=== PATIENT | female | born 1945 | race Caucasian/White ===

== ENCOUNTER 2019-09-11 18:03 | Emergency (ER) | payer OTHER ==
[~2019-09-11] VITALS: Ht 172.7 cm; Wt 90.3 kg
--- NOTE | 2019-09-11 18:08 | NUR ---
[id number], WOKE UP COUGHING AND CONFUSED 1 HOUR AGO. 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
--- NOTE | 2019-09-11 18:19 | NUR ---
DR VICTOR AT BEDSIDE
[2019-09-11 18:30] LABS: BASOPHILS % (AUTO) 0.3 % (0.0-2.0); HEMATOCRIT 40 % (33-45); HEMOGLOBIN 13.1 g/dL (11.5-14.8); LYMPHOCYTES # (AUTO) 2.5 /CMM (0.8-4.8); LYMPHOCYTES % (AUTO) 21.6 % (20.0-44.0); MEAN CORPUSCULAR HGB CONC 33 g/dl (31.0-36.0); MEAN CORPUSCULAR VOLUME 93 fL (82-100); MONOCYTES # (AUTO) 0.5 /CMM (0.1-1.30); MONOCYTES % (AUTO) 4.5 % (2.0-12.0); NEUTROPHILS # (AUTO) 8.2 /CMM (1.8-8.9); NEUTROPHILS % (AUTO) 70.6 % (43.0-81.0); PLATELET COUNT (AUTO) 218 /CMM (150-450); WHITE BLOOD COUNT (AUTO) 11.6 K/uL (4.3-11.0)
[2019-09-11 18:39] LABS: CALCIUM, SERUM 10.1 mg/dL (8.5-10.1); CARBON DIOXIDE 28 mmol/L (21-32); CHLORIDE 101 mmol/L (98-107); CREATININE 1.4 mg/dL (0.6-1.3); GLUCOSE 301 mg/dL (74-106); POTASSIUM 3.7 mmol/L (3.5-5.1); SODIUM SERUM 138 mmol/L (136-145); UREA NITROGEN, BLOOD 31 mg/dL (7-18)
[2019-09-11 18:45] LABS: ALANINE AMINOTRANSFERASE 35 U/L (12-78); ALBUMIN 3.7 g/dL (3.4-5.0); ALKALINE PHOSPHATASE 112 U/L (46-116); ASPARTATE AMINOTRANSFERASE 26 U/L (15-37); BILIRUBIN,DIRECT 0.1 mg/dL (0.0-0.2); BILIRUBIN,TOTAL 0.5 mg/dL (0.2-1.0); TOTAL PROTEIN, SERUM 7.9 g/dL (6.4-8.2)
--- NOTE | 2019-09-11 18:53 | NUR ---
PT DAUGHTER LEFT CONTACT #[phone]
[2019-09-11] MEDS ORDERED: IV NS 0.9% 1,000 ML BAG IV ONE (19:00)
--- NOTE | 2019-09-11 19:10 | NUR ---
REPORT GIVEN TO LUIS KRISHNAMURTHY FOR JAYLEN
--- NOTE | 2019-09-11 19:31 | NUR ---
REPORT RECEIVED FROM YESSY COPE FOR JAYLEN
--- NOTE | 2019-09-11 19:36 | NUR ---
REPORT RECEIVED FROM YESSY COPE FOR JAYLEN
[2019-09-11 19:50] LABS: APPEARANCE,URINE Clear (CLEAR); BILIRUBIN,URINE Negative (NEGATIVE); BLOOD, URINE Negative Ery/uL (NEGATIVE); COLOR,URINE Yellow (YELLOW); KETONES,URINE Negative (NEGATIVE); LEUKOCYTE ESTERASE ,URINE Trace (NEGATIVE); NITRITE, URINE Negative (NEGATIVE); PROTEIN,URINE 100 mg/dl (NEGATIVE); UGLUCOSE >=1000 mg/dL (NEGATIVE); UROBILINOGEN,URINE 0.2 EU/dL (0.2)
[2019-09-11 20:12] LABS: BACTERIA,URINE None seen /HPF (None Seen); RBC,URINE 0-2 /HPF (0-2); SQUAMOUS EPITHELIAL CELL,UR Few /HPF (None Seen); WBC,URINE 0-2 /HPF (0-3)
--- NOTE | 2019-09-11 20:27 | NUR ---
Patient discharged to home in stable condition. Written and verbal after care instructions given. Patient verbalizes understanding of instruction.IV removed. Catheter intact and site benign. Pressure and 4x4 applied to site. No bleeding noted.PT ambulatory with a steady gait
[2019-09-11 20:28] VITALS: BP 140/87
== END 2019-09-11 20:28 | disposition home or self-care (01) ==
LOC: ER 18:03
DX: J98.01 Acute bronchospasm (principal); R41.0 Disorientation, unspecified; E86.0 Dehydration; I10 Essential (primary) hypertension; Z88.0 Allergy status to penicillin
CPT/HCPCS: 36415; 70450; 71045; 80048; 80076; 81001; 84484; 85025; 93005; 96360; 99285; J7030; 81000-TC

== ENCOUNTER 2021-01-11 19:51 | Inpatient (IN) | payer MEDICARE, OTHER ==
[~2021-01-11] VITALS: Ht 172.7 cm; Wt 85.3 kg
--- NOTE | 2021-01-11 19:51 | NUR ---
PT AAOX4. BIBEMS C/O GEN WEAKNESS, DARK STOOL. COVID (+) 01/06/21. PLACED IN BED 8 ON CARE TRANSPORT NURSE AND PULSE OX. ER MD AT BEDSIDE FOR EVAL. AWAITING ORDERS.
--- NOTE | 2021-01-11 19:53 | NUR ---
LINE ESTABLISHED RAC 20G, BLOOD COLLECTED, SENT TO LAB.
--- NOTE | 2021-01-11 19:58 | NUR ---
STATED SHE WAS HAVING BLOODY BM X1 WEEK
--- NOTE | 2021-01-11 20:03 | NUR ---
RADIOLOGY AT BEDSIDE FOR XRAY.
[2021-01-11 20:33] LABS: BASOPHILS % (AUTO) 0.5 % (0.0-2.0); EOSINOPHILS % (AUTO) 0.3 % (0.0-6.0); HEMATOCRIT 37 % (33-45); HEMOGLOBIN 12.2 g/dL (11.5-14.8); LYMPHOCYTES # (AUTO) 1.2 K/uL (0.8-4.8); LYMPHOCYTES % (AUTO) 17.4 % (20.0-44.0); MEAN CORPUSCULAR HGB CONC 33 g/dl (31.0-36.0); MEAN CORPUSCULAR VOLUME 91 fL (82-100); MONOCYTES # (AUTO) 0.5 K/uL (0.1-1.30); MONOCYTES % (AUTO) 7.4 % (2.0-12.0); NEUTROPHILS # (AUTO) 5.2 K/uL (1.8-8.9); NEUTROPHILS % (AUTO) 74.4 % (43.0-81.0); PLATELET COUNT (AUTO) 164 K/uL (150-450); RED BLOOD CELL COUNT(AUTO) 4.04 MIL/uL (4.0-5.2)
[2021-01-11 20:46] LABS: CALCIUM, SERUM 8.9 mg/dL (8.5-10.1); CARBON DIOXIDE 24 mmol/L (21-32); CHLORIDE 97 mmol/L (98-107); CREATININE 1.7 mg/dL (0.6-1.3); GLUCOSE 229 mg/dL (74-106); POTASSIUM 3.8 mmol/L (3.5-5.1); SODIUM SERUM 132 mmol/L (136-145); UREA NITROGEN, BLOOD 25 mg/dL (7-18)
--- NOTE | 2021-01-11 20:55 | NUR ---
PT RESTING COMFORTABLY. CALL LIGHT WITHIN REACH
[2021-01-11 21:00] LABS: ALANINE AMINOTRANSFERASE 46 U/L (12-78); ALBUMIN 3.4 g/dL (3.4-5.0); ALKALINE PHOSPHATASE 97 U/L (46-116); ASPARTATE AMINOTRANSFERASE 54 U/L (15-37); BILIRUBIN,DIRECT 0.2 mg/dL (0.0-0.2); BILIRUBIN,TOTAL 0.5 mg/dL (0.2-1.0); TOTAL PROTEIN, SERUM 7.5 g/dL (6.4-8.2)
--- NOTE | 2021-01-11 21:50 | NUR ---
GALE HERNANDEZ TALKING TO [employer] DEATH CLAIM EXAMINER REGARDING PT.
[2021-01-11] MEDS ORDERED: LEVOFLOXACIN 500 MG /D5W 100ML 500 MG/100 ML PIGGYBACK IV ONE (22:00)
--- NOTE | 2021-01-11 22:22 | NUR ---
ARTEM [facility], [phone]
--- NOTE | 2021-01-11 22:24 | NUR ---
SPOKE TO ARTEM FROM [facility], UPDATED HER THAT PCR WAS DONE. STATED SHE WILL CALL BACK.
--- NOTE | 2021-01-12 00:15 | NUR ---
RESTING COMFORTABLY. VSS.
--- NOTE | 2021-01-12 01:50 | NUR ---
PT AMBULATED TO THE BEDSIDE COMMODE. BACK TO BED. ON MONITOR AND PULSE OX. VSS.
--- NOTE | 2021-01-12 03:45 | NUR ---
PT RESTING COMFORTABLY. VSS. PROVIDED WITH MORE BLANKETS.
[2021-01-12] MEDS: ACETAMINOPHEN 325 MG TABLET PO PRN (04:44)
[2021-01-12] MEDS: CEFTRIAXONE 1 G in IV D5W 50 ML IV SCH (05:00)
[2021-01-12] MEDS ORDERED: ONDANSETRON HCL/PF 4 MG/2 ML VIAL IVP PRN (05:00)
[2021-01-12] MEDS ORDERED: ENOXAPARIN SODIUM 40 MG/0.4 ML DISP.SYRIN SQ SCH (05:00)
[2021-01-12] MEDS ORDERED: Z GUARD REMEDY 2 OZ OINT TP PRN (05:00)
[2021-01-12] MEDS ORDERED: CEFTRIAXONE 1GM BAG (ER ONLY) 50 ML IV ONE (05:10)
[2021-01-12] MEDS ORDERED: ENOXAPARIN SODIUM 40 MG/0.4 ML DISP.SYRIN SQ ONE (05:10)
[2021-01-12 05:19] LABS: ALANINE AMINOTRANSFERASE 45 U/L (12-78); ALBUMIN 3.2 g/dL (3.4-5.0); ALKALINE PHOSPHATASE 89 U/L (46-116); ASPARTATE AMINOTRANSFERASE 52 U/L (15-37); BILIRUBIN,TOTAL 0.5 mg/dL (0.2-1.0); CALCIUM, SERUM 9.1 mg/dL (8.5-10.1); CARBON DIOXIDE 25 mmol/L (21-32); CHLORIDE 99 mmol/L (98-107); CREATININE 1.5 mg/dL (0.6-1.3); GLUCOSE 197 mg/dL (74-106); MAGNESIUM 1.9 mg/dL (1.8-2.4); PHOSPHORUS 2.7 mg/dL (2.5-4.9); POTASSIUM 4.4 mmol/L (3.5-5.1); SODIUM SERUM 134 mmol/L (136-145); TOTAL PROTEIN, SERUM 7.4 g/dL (6.4-8.2); UREA NITROGEN, BLOOD 23 mg/dL (7-18)
[2021-01-12] MEDS ORDERED: AZITHROMYCIN 500 MG VIAL ONE (05:27)
--- NOTE | 2021-01-12 05:31 | NUR ---
PT REQUESTED FOR ME TO STOP THE ANTIBIOTICS. STATED IT WAS BURNING. I DID CHECK THE IV SITE, IV SITE WORKS. ANTIBIOTICS STOPPED. (ZITHROMAX)
[2021-01-12] MEDS: AZITHROMYCIN 500 MG in IV D5W 250 ML IV SCH (05:45)
--- NOTE | 2021-01-12 07:58 | NUR ---
75 years old female alert, oriented x3 presents to gen weakness, vital stable no acute distress awaiting for admit tele bed breakfast tray given tolerated well.
[2021-01-12] MEDS ORDERED: PANTOPRAZOLE 40 MG VIAL ONE (08:02)
[2021-01-12] MEDS ORDERED: DEXAMETHASONE SOD PHOSPHATE 10 MG/ML VIAL ONE (08:02)
[2021-01-12] MEDS: PANTOPRAZOLE 40 MG TABLET.DR PO SCH (08:04)
[2021-01-12] MEDS ORDERED: TRIA1TAB5 PO (08:29)
[2021-01-12] MEDS ORDERED: CLOP75TA15 PO (08:29)
[2021-01-12] MEDS ORDERED: ATOR40TA PO (08:29)
[2021-01-12] MEDS ORDERED: GLIP10TA11 PO (08:29)
[2021-01-12] MEDS ORDERED: METF-440 PO ×2 (08:29)
[2021-01-12] MEDS ORDERED: PIOG15TA8 PO (08:29)
[2021-01-12] MEDS ORDERED: LOSA50TA39 PO (08:29)
[2021-01-12] MEDS ORDERED: SITA50TA PO (08:29)
[2021-01-12] MEDS ORDERED: DEXAMETHASONE SOD PHOSPHATE 10 MG/ML VIAL IV SCH (09:00)
[2021-01-12] MEDS ORDERED: ONDANSETRON HCL/PF 4 MG/2 ML VIAL ONE (10:58)
--- NOTE | 2021-01-12 12:22 | NUR ---
patient reassess denies pain, vital stable, nausea improved.
--- NOTE | 2021-01-12 12:53 | NUR ---
ROOM 116-1
--- NOTE | 2021-01-12 13:34 | NUR ---
BED CORRECTION BED 105
--- NOTE | 2021-01-12 13:41 | NUR ---
patient stable for transfer to unit room 116-1 report given to nurse Eduardo all questions answered.
--- NOTE | 2021-01-12 14:00 | NUR ---
RN NOTE PATIENT RECEIVED FROM ER, PATIENT ON ROOM 15 RECEIVED REPORT FROM DONNELL KRISHNAMURTHY, WILL CONTINUE PLAN OF CARE.
[2021-01-12 16:00] VITALS: BP 134/78
[2021-01-12 16:44] LABS: BASOPHILS % (AUTO) 0.2 % (0.0-2.0); HEMATOCRIT 37 % (33-45); HEMOGLOBIN 12.2 g/dL (11.5-14.8); LYMPHOCYTES # (AUTO) 0.4 K/uL (0.8-4.8); LYMPHOCYTES % (AUTO) 11.4 % (20.0-44.0); MEAN CORPUSCULAR HGB CONC 33 g/dl (31.0-36.0); MEAN CORPUSCULAR VOLUME 91 fL (82-100); MONOCYTES # (AUTO) 0.1 K/uL (0.1-1.30); MONOCYTES % (AUTO) 2.3 % (2.0-12.0); NEUTROPHILS # (AUTO) 2.9 K/uL (1.8-8.9); NEUTROPHILS % (AUTO) 86.1 % (43.0-81.0); PLATELET COUNT (AUTO) 177 K/uL (150-450); RED BLOOD CELL COUNT(AUTO) 4.06 MIL/uL (4.0-5.2); WHITE BLOOD COUNT (AUTO) 3.4 K/uL (4.3-11.0)
[2021-01-12] MEDS: glipiZIDE 10 MG TABLET PO SCH (17:46)
--- NOTE | 2021-01-12 18:49 | NUR ---
RN NOTE PATIENT AWAKE, ALERT AND ORIENTED X4 ABLE TO VERBALIZE NEEDS, ON ROOM AIR BREATHING EVEN AND UNLABORED O2 SAT OF 98%, ON IV ATB FOR PNA NO ASE NOTED, IV SITE PATENT FLUSHING WELL, REFUSED LAB RE-DRAW, SAFETY MEASURE OBSERVED, BED WHEELS LOCK, CALL LIGHT WITHIN REACH, WILL ENDORSE TO NOC SHIFT.
[2021-01-12] MEDS: IV NS 0.9% 1,000 ML IV PRN (20:41)
[2021-01-12 22:00] VITALS: BP 115/69
--- NOTE | 2021-01-12 23:10 | NUR ---
RN NOTES, PATIENT NOTED WITH HR LOWEST 40 AT THIS TIME, DENIES ANY CHEST PAIN OR DISCOMFORT, INFORMED DR BUCHANAN GENERAL MANAGER FOOD AND HE REPLIED WITH ORDER TO CONT MONITOR FOR NOW, NOTED AND CARRIED OUT.
[2021-01-12 23:11] LABS: BILIRUBIN,URINE NEGATIVE (NEGATIVE); COLOR,URINE YELLOW (YELLOW); LEUKOCYTE ESTERASE ,URINE NEGATIVE (NEGATIVE); NITRITE, URINE NEGATIVE (NEGATIVE); PROTEIN,URINE 30 mg/dl (NEGATIVE); UGLUCOSE >=1000 mg/dL (NEGATIVE); UROBILINOGEN,URINE 0.2 EU/dL (0.2)
[2021-01-12 23:26] LABS: BACTERIA,URINE None seen /HPF (None Seen); MUCUS,URINE Few /LPF (None Seen); SQUAMOUS EPITHELIAL CELL,UR Few /HPF (None Seen); WBC,URINE 0-2 /HPF (0-3)
[2021-01-13] VITALS: BP 118/68
--- NOTE | 2021-01-13 01:40 | NUR ---
RN NOTES, PATIENT NOTED CONSISTENTLY WITH HR 38-40, INFORMED DR BUCHANAN MANAGER STUDY AND REPLIED WITH ORDER FOR ATROPINE 0.5 MG IVP STAT X ONE, ODER NOTED AND CARRIED OUT, WILL ADMINISTER ORDERED.
[2021-01-13] MEDS ORDERED: ATROPINE SULFATE 1 MG/10 ML DISP.SYRIN ONE (01:51)
--- NOTE | 2021-01-13 01:57 | NUR ---
RN NOTES, ATROPINE ADMINISTERED AT THIS TIME, PATIENT TOLERATED WELL, HR 39 AT THIS TIME IT INCREASED TO MID 40S WILL CONTINUE TO MONITOR CLOSELY.
[2021-01-13] MEDS ORDERED: ATROPINE SULFATE INJ 0.4 MG/ML VIAL IV ONE (02:00)
[2021-01-13 04:00] VITALS: BP_SYST 134; BP_SYST 144; BP_DIAS 63; BP_DIAS 67
[2021-01-13] MEDS: AZITHROMYCIN 500 MG in IV D5W 250 ML IV SCH (04:49)
[2021-01-13 05:00] LABS: OCCULT BLOOD STOOL NEGATIVE (NEGATIVE)
[2021-01-13] MEDS: CEFTRIAXONE 1 G in IV D5W 50 ML IV SCH (05:00)
[2021-01-13 06:41] LABS: BASOPHILS % (AUTO) 0.1 % (0.0-2.0); EOSINOPHILS % (AUTO) 0.1 % (0.0-6.0); HEMATOCRIT 34 % (33-45); HEMOGLOBIN 11.4 g/dL (11.5-14.8); LYMPHOCYTES % (AUTO) 20.7 % (20.0-44.0); MEAN CORPUSCULAR HGB CONC 33 g/dl (31.0-36.0); MEAN CORPUSCULAR VOLUME 91 fL (82-100); MONOCYTES # (AUTO) 0.5 K/uL (0.1-1.30); MONOCYTES % (AUTO) 10.9 % (2.0-12.0); NEUTROPHILS # (AUTO) 3.4 K/uL (1.8-8.9); NEUTROPHILS % (AUTO) 68.2 % (43.0-81.0); PLATELET COUNT (AUTO) 181 K/uL (150-450); RED BLOOD CELL COUNT(AUTO) 3.78 MIL/uL (4.0-5.2)
[2021-01-13 07:20] LABS: CALCIUM, SERUM 8.9 mg/dL (8.5-10.1); CARBON DIOXIDE 22 mmol/L (21-32); CHLORIDE 97 mmol/L (98-107); CREATININE 1.6 mg/dL (0.6-1.3); MAGNESIUM 2.1 mg/dL (1.8-2.4); POTASSIUM 5.1 mmol/L (3.5-5.1); SODIUM SERUM 129 mmol/L (136-145); UREA NITROGEN, BLOOD 30 mg/dL (7-18)
[2021-01-13 07:22] LABS: CHOLESTEROL 106 mg/dL (<200); HDL CHOLESTEROL 52 mg/dL (40-60); LDL 38 mg/dL (0-99); TRIGLYCERIDES 79 mg/dL (30-150)
[2021-01-13 07:48] LABS: GLUCOSE 438 mg/dL (74-106)
[2021-01-13] MEDS: PANTOPRAZOLE 40 MG TABLET.DR PO SCH (07:49)
[2021-01-13 08:00] VITALS: BP 111/99
[2021-01-13] MEDS: glipiZIDE 10 MG TABLET PO SCH ×2 (08:35→17:32)
[2021-01-13] MEDS: ATORVASTATIN 40 MG TABLET PO SCH (08:36)
[2021-01-13] MEDS: LINAGLIPTIN 5 MG TABLET PO SCH (08:36)
[2021-01-13] MEDS ORDERED: ENOXAPARIN SODIUM 40 MG/0.4 ML DISP.SYRIN SQ SCH (09:00)
[2021-01-13] MEDS ORDERED: DEXTROSE 50%-WATER 50 ML DISP.SYRIN IV PRN (09:00)
[2021-01-13] MEDS: LOSARTAN POTASSIUM 50 MG TABLET PO SCH (09:00)
[2021-01-13] MEDS: PIOGLITAZONE HCL 15 MG TABLET PO SCH (09:28)
[2021-01-13] MEDS: BLOOD SUGAR DIAGNOSTIC 1 EACH STRIP IN SCH ×4 (09:48→22:32)
[2021-01-13] MEDS: INSULIN REGULAR, HUMAN 100 UNIT/ML 3 ML VIAL SQ PRN ×5 (09:49→22:43)
--- NOTE | 2021-01-13 09:52 | NUR ---
RN NOTES, BLOOD SUGAR 292MG/DL PATIENT REFUSED INSULIN COVERAGE, REFUSING INSULLIN, SHE STATED SHE DOESN'T WANT INSULIN.,
[2021-01-13 12:00] VITALS: BP 111/54
--- NOTE | 2021-01-13 12:50 | NUR ---
RN NOTES, BLOOD SUGAR 273MG/DL PATIENT REFUSED INSULIN COVERAGE.
[2021-01-13] MEDS: CLOPIDOGREL BISULFATE 75 MG TABLET PO SCH (13:45)
[2021-01-13] MEDS: DEXAMETHASONE SOD PHOSPHATE 10 MG/ML VIAL IV SCH (13:45)
[2021-01-13 16:00] VITALS: BP 144/63
--- NOTE | 2021-01-13 17:11 | NUR ---
RN NOTES, PATIENT IN STABLE CONDITION NO SOB/ACUTE DISTRESS AT 2LPM VIA NC, WILL ENDORSE TO DIEGO KRISHNAMURTHY FOR CONTINUATION OF CARE.
--- NOTE | 2021-01-13 17:36 | NUR ---
RN NOTE PATIENT ALERT AND ORIENTED X 4, REFUSED INSULIN PER SLIDING SCALE, BS OF 404, EXPLAINED RISK AND BENEFITS TO PATIENT, KOLE PERES NOTIFIED.
--- NOTE | 2021-01-13 19:03 | NUR ---
RN NOTE PATIENT AWAKE, ALERT AND RESPONSIVE X4, ADMINISTERED 10 UNIT INSULIN ORDERED MD AWARE THAT BLOOD SUGAR LEVEL IS 404, PATIENT REFUSED AT FIRST BUT CHANGED HER MIND AND WANTS INSULIN, ON O2 @ 2LPM O2 SAT OF 95% ON TELE MONITOR SR OF 62, NO PAIN COMPLAINS, WILL CONTINUE TO MONITOR, BED WHEELS LOCK, SAFETY MEASURE OBSERVED CALL LIGHT WITHIN REACH, WILL ENDORSE TO NOC SHIFT.
--- NOTE | 2021-01-13 19:51 | NUR ---
RN NOTE PATIENT ALERT AND ORIENTED X4. ON O2 2L VIA NASAL CANNULA, O2 SAT 95%. NO SIGNS OF SHORTNESS OF BREATH. DENIES ANY PAIN AT THIS TIME. WITH RIGHT AC # 20, NO SIGNS OF INFILTRATION. SAFETY MEASURES MAINTAINED. BED LOCKED AND IN LOWEST POSITION. CALL LIGHT WITHIN REACH. ALL NEEDS ANTICIPATED.
[2021-01-13 20:00] VITALS: BP 133/55
--- NOTE | 2021-01-13 23:00 | NUR ---
PATIENT NOTED WITH BLOOD SUGAR 416, DR. BUCHANAN NOTIFIED WITH NEW ORDERS FOR LANTUS 10 UNIT SQ QHS NOTED AND CARRIED OUT.
[2021-01-13] MEDS ORDERED: INSULIN GLARGINE, 100 UNIT/ML CARTRIDGE SQ ONE (23:38)
[2021-01-13] MEDS: INSULIN GLARGINE, 100 UNIT/ML CARTRIDGE SQ SCH (23:44)
[2021-01-14] VITALS: BP 144/82
--- NOTE | 2021-01-14 01:59 | NUR ---
PATIENT NOTED WITH HEART RATE 40 AT THIS TIME AND COMPLAINED OF LIGHT HEADEDNESS. INFORMED DR BUCHANAN FIRE CHIEF DEPUTY WITH ORDER TO CONT MONITOR FOR NOW. NOTED.
[2021-01-14 04:00] VITALS: BP 160/65
[2021-01-14] MEDS: CEFTRIAXONE 1 G in IV D5W 50 ML IV SCH (04:32)
[2021-01-14] MEDS: AZITHROMYCIN 500 MG in IV D5W 250 ML IV SCH (05:02)
[2021-01-14] MEDS: IV NS 0.9% 1,000 ML IV PRN (05:36)
--- NOTE | 2021-01-14 07:28 | NUR ---
RN NOTE PATIENT ALERT AND ORIENTED X4. ALL NEEDS ATTENDED PROMPTLY. DENIES ANY PAIN AT THIS TIME. SAFETY MEASURES MAINTAINED. BED LOCKED AND IN LOWEST POSITION. CALL LIGHT WITHIN REACH. ENDORSED TO AM SHIFT.
[2021-01-14] MEDS: BLOOD SUGAR DIAGNOSTIC 1 EACH STRIP IN SCH ×4 (07:39→23:23)
--- NOTE | 2021-01-14 07:41 | NUR ---
RN OPENING NOTES RECEIVED PATIENT IN BED, ALERT AND ORIENTED X4. ON O2 2L VIA NASAL CANNULA, O2 SAT 95%. NO SIGNS OF SHORTNESS OF BREATH. DENIES ANY PAIN AT THIS TIME, IN NO ACUTE DISTRESS NOTED. NO IV ACCESS AT THIS TIME, FOR MIDLINE INSERTION ORDERED. SAFETY MEASURES IN PLACE; BED IN LOCKED AND IN LOWEST POSITION. CALL LIGHT WITHIN REACH. WILL CONTINUE TO MONITOR ACCORDINGLY.
[2021-01-14] MEDS: PIOGLITAZONE HCL 15 MG TABLET PO SCH (08:19)
[2021-01-14] MEDS: LOSARTAN POTASSIUM 50 MG TABLET PO SCH (08:19)
[2021-01-14] MEDS: LINAGLIPTIN 5 MG TABLET PO SCH (08:19)
[2021-01-14] MEDS: PANTOPRAZOLE 40 MG TABLET.DR PO SCH ×2 (08:19→08:21)
[2021-01-14] MEDS: glipiZIDE 10 MG TABLET PO SCH ×2 (08:19→16:52)
[2021-01-14] MEDS: ATORVASTATIN 40 MG TABLET PO SCH (08:19)
[2021-01-14] MEDS: CLOPIDOGREL BISULFATE 75 MG TABLET PO SCH (08:19)
[2021-01-14] MEDS: DEXAMETHASONE SOD PHOSPHATE 10 MG/ML VIAL IV SCH (09:00)
--- NOTE | 2021-01-14 09:00 | NUR ---
RN NOTES NO IV ACCESS, DEXAMETHASONE NOT YET GIVEN.
[2021-01-14 09:41] VITALS: BP 142/60
[2021-01-14] MEDS: INSULIN REGULAR, HUMAN 100 UNIT/ML 3 ML VIAL SQ PRN ×3 (11:32→23:21)
[2021-01-14 13:37] VITALS: BP 135/65
[2021-01-14 17:47] VITALS: BP 144/64
[2021-01-14 17:52] LABS: POTASSIUM 3.5 mmol/L (3.5-5.1); SODIUM SERUM 137 mmol/L (136-145)
[2021-01-14 17:53] LABS: CALCIUM, SERUM 9.1 mg/dL (8.5-10.1); CARBON DIOXIDE 24 mmol/L (21-32); CHLORIDE 102 mmol/L (98-107); CREATININE 1.4 mg/dL (0.6-1.3); GLUCOSE 213 mg/dL (74-106); UREA NITROGEN, BLOOD 30 mg/dL (7-18)
--- NOTE | 2021-01-14 18:50 | NUR ---
CITIZENSHIP TEACHER CLOSING NOTES PATIENT IN BED, ALERT AND ORIENTED X4. ON O2 2L VIA NASAL CANNULA, O2 SAT 95%. NO SIGNS OF SHORTNESS OF BREATH. DENIES ANY PAIN AT THIS TIME, IN NO ACUTE DISTRESS NOTED. ON EXTERNAL MONITOR SR WITH OCCASIONAL PAC HR AT 56. IV ACCESS ON MARICRUZ MIDLINE, INTACT AND PATENT. SAFETY MEASURES IN PLACE; BED IN LOCKED AND IN LOWEST POSITION. SIDE RAILS UP X2, CALL LIGHT WITHIN REACH. WILL ENDORSE TO ONCOMING SHIFT FOR JAYLEN.
[2021-01-14 20:00] VITALS: BP 128/69
[2021-01-14] MEDS ORDERED: INSULIN GLARGINE, 100 UNIT/ML CARTRIDGE SQ SCH (22:00)
[2021-01-14] MEDS: INSULIN GLARGINE, 100 UNIT/ML CARTRIDGE SQ SCH (23:22)
[2021-01-15] VITALS: BP 119/61
--- NOTE | 2021-01-15 03:00 | NUR ---
RN notes Alert and oriented, able to communicate needs verbally. Ambulatory with assist. On room air tolerating well. No complaint of pain or discomfort. No significant change of condition. Vital signs within normal limits. Kept clean and dry. Will endorse to next shift for continuity of care.
[2021-01-15 04:38] VITALS: BP 138/68
[2021-01-15] MEDS: CEFTRIAXONE 1 G in IV D5W 50 ML IV SCH (05:11)
[2021-01-15] MEDS: AZITHROMYCIN 500 MG in IV D5W 250 ML IV SCH (05:12)
[2021-01-15 07:15] LABS: BASOPHILS % (AUTO) 0.2 % (0.0-2.0); EOSINOPHILS % (AUTO) 0.1 % (0.0-6.0); HEMATOCRIT 34 % (33-45); HEMOGLOBIN 11.5 g/dL (11.5-14.8); LYMPHOCYTES # (AUTO) 0.9 K/uL (0.8-4.8); LYMPHOCYTES % (AUTO) 9.5 % (20.0-44.0); MEAN CORPUSCULAR HGB CONC 34 g/dl (31.0-36.0); MEAN CORPUSCULAR VOLUME 90 fL (82-100); MONOCYTES # (AUTO) 0.6 K/uL (0.1-1.30); MONOCYTES % (AUTO) 6.3 % (2.0-12.0); NEUTROPHILS % (AUTO) 83.9 % (43.0-81.0); PLATELET COUNT (AUTO) 229 K/uL (150-450); RED BLOOD CELL COUNT(AUTO) 3.77 MIL/uL (4.0-5.2); WHITE BLOOD COUNT (AUTO) 9.5 K/uL (4.3-11.0)
--- NOTE | 2021-01-15 07:15 | NUR ---
PRACTICE ASSISTANT NOTES PATIENT IN BED RESTING, ALERT AND ORIENTED X4. ON O2 2L VIA NASAL CANNULA, O2 SAT 95%, TOLERATES ROOM AIR AT TIMES. NO SIGNS OF SHORTNESS OF BREATH. ON EXTERNAL AGILE PROJECT MANAGER, READING OF SR WITH OCCASIONAL PAC, HR IN THE MID 50'S TO LOW 60'S. IV ACCESS ON MARICRUZ MIDLINE, INTACT AND PATENT. SAFETY MEASURES IN PLACE. WILL CONTINUE TO MONITOR.
[2021-01-15] MEDS: BLOOD SUGAR DIAGNOSTIC 1 EACH STRIP IN SCH ×3 (07:29→17:16)
[2021-01-15 07:31] LABS: ALBUMIN 2.7 g/dL (3.4-5.0); BILIRUBIN,TOTAL 0.4 mg/dL (0.2-1.0); CALCIUM, SERUM 9.2 mg/dL (8.5-10.1); CREATININE 1.3 mg/dL (0.6-1.3); PHOSPHORUS 2.3 mg/dL (2.5-4.9); POTASSIUM 4.1 mmol/L (3.5-5.1); TOTAL PROTEIN, SERUM 6.5 g/dL (6.4-8.2)
[2021-01-15 08:00] VITALS: BP 144/66
[2021-01-15] MEDS: INSULIN REGULAR, HUMAN 100 UNIT/ML 3 ML VIAL SQ PRN ×2 (08:31→12:14)
[2021-01-15] MEDS: LOSARTAN POTASSIUM 50 MG TABLET PO SCH (08:32)
[2021-01-15] MEDS: ATORVASTATIN 40 MG TABLET PO SCH (08:32)
[2021-01-15] MEDS: LINAGLIPTIN 5 MG TABLET PO SCH (08:32)
[2021-01-15] MEDS: PIOGLITAZONE HCL 15 MG TABLET PO SCH (08:33)
[2021-01-15] MEDS: CLOPIDOGREL BISULFATE 75 MG TABLET PO SCH (08:33)
[2021-01-15] MEDS: DEXAMETHASONE SOD PHOSPHATE 10 MG/ML VIAL IV SCH (08:33)
[2021-01-15] MEDS: glipiZIDE 10 MG TABLET PO SCH ×2 (08:35→17:03)
[2021-01-15] MEDS: ACETAMINOPHEN 325 MG TABLET PO PRN (09:35)
[2021-01-15] MEDS ORDERED: DEXA4TAB PO (09:41)
[2021-01-15 10:38] LABS: THYROID STIMULATING HORMONE 0.748 uIU/mL (0.358-3.74)
--- NOTE | 2021-01-15 11:51 | NUR ---
RN NOTES SPOKE W/ PATIENT AND INFORMED ABOUT POSSIBLE DISCHARGE TO HOME TODAY. PER PATIENT, HER BROTHER WILL BE ABLE TO PICK HER UP LATER.
[2021-01-15 12:00] VITALS: BP 122/55
--- NOTE | 2021-01-15 12:21 | NUR ---
RN NOTES PATIENT WAS SEEN BY DR. PERES TODAY W/ ORDER NOTED.
[2021-01-15 16:00] VITALS: BP 135/68
--- NOTE | 2021-01-15 17:56 | NUR ---
RN NOTES SPOKE W/ PARTH, LINE DEPARTMENT SUPERVISOR; PATIENT WILL BE PICKED UP BY [facility] AT 1999.
--- NOTE | 2021-01-15 19:00 | NUR ---
RN NOTES PATIENT RESTING IN BED, FINISHED EATING DINNER. NOT IN ACUTE DISTRESS. TOLERATING ROOM AIR W/ NON-LABORED BREATHING. SAFETY MEASURES MAINTAINED. EXITCARE DONE. ENDORSED COMPLETION OF DISCHARGE TO FOUNDATION DIRECTOR RN.
--- NOTE | 2021-01-15 20:22 | NUR ---
RN notes Received and patient awake, alert and oriented resting comfortably in bed. Picked-up by Ambulance at 19:30 with vital signs wnl. No complaint of pain or discomfort. Removed miline. site no swelling, redness or bleeding.Procedure well tolerated. All paperworks given to ambulance staff and was brought up by dannielle in stable condition.
== END 2021-01-15 19:54 | disposition home or self-care (01) | DRG 177 ==
LOC: ER 19:54 → TRANSITION 01-12 03:58 → TELE1 01-12 13:23 → MEDSG1 01-12 13:31 → TELE1 01-12 13:33
PROVIDERS: ADMIT Nurse Practitioner Acute Care; ATTEND Nurse Practitioner Acute Care
PROC: 05HC33Z Insertion of Infusion Device into Left Basilic Vein, Percutaneous Approach (ICD-10-PCS; principal; 2021-01-14)
DX: U07.1 COVID-19 (principal); N17.0 Acute kidney failure with tubular necrosis; J12.82 Pneumonia due to coronavirus disease 2019; J15.9 Unspecified bacterial pneumonia; E87.1 Hypo-osmolality and hyponatremia; E44.1 Mild protein-calorie malnutrition; N39.0 Urinary tract infection, site not specified; E11.22 Type 2 diabetes mellitus with diabetic chronic kidney disease; I12.9 Hypertensive chronic kidney disease with stage 1 through stage 4 chronic kidney disease, or unspecified chronic kidney disease; N18.9 Chronic kidney disease, unspecified; Z88.0 Allergy status to penicillin; R00.1 Bradycardia, unspecified; E86.1 Hypovolemia
CPT/HCPCS: 36410; 36415; 71045-TC; 80048-TC; 80053-TC; 80061-TC; 80076-TC; 81001; 82272-TC; 82962-TC; 83605-TC; 83735-TC; 83880; 84100-TC; 84439-TC; 84443-TC; 84484-TC; 85025-TC; 85730-TC; 86140-TC; 86850-TC; 87040-TC; 87081-TC; 87086-TC; 93307-TC; 97112-TC; 97116-TC; 97530-TC; C9113; G0378; J0456; J0461; J0696; J1100; J1650; J1815; J1956; J2405; J7030; J7060; U0003